=== PATIENT | male | born 1985 | race Caucasian/White ===

== ENCOUNTER 2022-03-04 08:49 | Emergency (ER) | payer OTHER ==
[2022-03-04] MEDS ORDERED: Ketorolac Tromethamine 30 MG/ML VIAL ONE (10:23)
[2022-03-04] MEDS ORDERED: Dexamethasone 4 MG TAB ONE (10:26)
== END 2022-03-04 10:38 | disposition home or self-care (01) ==
LOC: CSHERS 08:49
DX: M54.50 Low back pain, unspecified (principal); F17.220 Nicotine dependence, chewing tobacco, uncomplicated; I10 Essential (primary) hypertension
CPT/HCPCS: 96372; 99283; J1885; J8540